=== PATIENT | female | born 2005 | race Caucasian/White ===

== ENCOUNTER 2025-04-19 11:10 | Emergency (ER) | payer OTHER, SELFPAY ==
[2025-04-19 11:12] VITALS: BP 142/92; PULSE 110; RESP 16; TEMP 36.6; O2SAT 98
--- OUTSIDE RECORDS SUMMARY | 2025-04-19 11:36 | XMS_ITS | Clinical Summary ---
Author Organization [facility] Address [address] [place] [address] Care Team Providers Care Perforating Machine Operator Name Role Phone Maxine Curtis MD Primary Care Provider [phone] Allergies Active Allergy Reactions Criticality Noted Date Comments Amoxicillin Hives Medium 07/06/2024 Medications propranoloL (INDERAL) 20 mg tablet Take 1 tablet (20 mg total) by mouth 2 (two) times a day as needed (1 hour prior to anticipated triggering event for tremmors) 30 tablet 3 5 Active Active Problems Problem Noted Date Diagnosed Date Physiological tremor 07/06/2024 Assessment & Plan (07/06/2024 2:43 PM CDT): The patient is presenting with progressively worsening tremors for the past 2 years. The patient's tremors are high frequency low amplitude. Her tremors are enhanced by caffeine intake, poor sleep, anxiety, and stress. She is endorses feels warm, increased diarrhea, and brisk reflexes, which are concerning for hyperthyroidism, which can worsen patient's tremors. Overall, the patient's tremors are likely enhanced physiological tremors given her exam and the duration of her symptoms. In order to be diagnosed with essential tremors, the patient needs to have had her symptoms for 3 years. No concern for Parkinson's disease at this time given no bradykinesia and normal tone on exam. Given her family history, it is not unreasonable to obtain brain MRI should the routine lab work is normal. If all of the work up is negative the patient would like to start symptomatic treatment with propanolol as needed given how bothersome her symptoms can be. - Obtain TSH, CBC, CMP - If normal labs, obtain bMRI WO contrast - If normal MRI start propanolol 60 mg PRN BID (if unhelpful, convert to scheduled then increase to 120 mg BID after few weeks) - Return to clinic in about 6 to 9 months Broken forearm 12/06/2014 Family History Medical History Relation Name Comments Diabetes Mother's Sister Diabetes Zenaida litus - (Added by TW Conv) Ovarian cancer Mother's Sister Carcinoma Of The Ovary - (Added by TW Conv) Thyroid disease Mother's Sister Thyroid D isorder - (Added by TW Conv) Uterine cancer Mother's Sister Uterine Ca ncer - (Added by [employer] Conv) Heart disease Paternal Grandfather Heart Disease - (Added by [employer] Conv) Stroke Paternal Grandfather Stroke Syndrome - (Added by [employer] Conv) Relation Name Status Comments Mother's Sister Paternal Grandfather Social History Tobacco Use Types Packs/Day Years Used Date Smoking Tobacco: Never Smokeless Tobacco: Never Tobacco Cessation:Counseling Given: Not Answered Comments Unknown Sex and Gender Information Value Date Recorded Sex Assigned at Not on file 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 Gender Identity Not on file Sexual Orientation Not on file Last Filed Vital Signs Vital Sign Reading Time Taken Comments Blood Pressure 120/70 07/06/2024 12:49 PM CDT Pulse 73 07/06/2024 12:49 PM CDT Temperature - - Respiratory Rate - - Oxygen Saturation 100% 11/22/2014 8:00 AM CDT Inhaled Oxygen Concentration - - Weight 49.9 kg (110 lb) 11/05/2024 10:00 AM CDT Height 157.5 cm (5' 2) 11/05/2024 10:00 AM CDT Body Mass Index 20.12 11/05/2024 10:00 AM CDT Plan of Treatment Health Maintenance Due Date Last Done Comments Cervical Cancer Screening 2003 Hepatitis C Screening 2003 Meningococcal B Vaccine (2 o f 2 - Trumenba SCDM 2-dose series) 04/24/2021 10/23/2020 Regular Well Visit/Exam 18-64 10/18/2021 DTaP/Tdap/Td Vaccine (7 - Td or Tdap) 11/18/2024 11/18/2014, 11/18/2007, 03/01/2005, Additional history exists Covid-19 Vaccine (3 - 2024-2 6 season) 2024 01/08/2021, 12/18/2020 Influenza Vaccine (#1) 2024 5, 03/25/2014, 05/04/2013, Additional history exists Depression Screening 07/06/2025 07/06/2024 Hepatitis B Screening Completed 05/03/2004 , 05/03/2004, 2003, Additional history exists Pneumococcal vaccine <65 Completed 005, 05/03/2004, 02/24/2004, Additional history exists Varicella Vaccines Completed 11/29/2008, 10/24/2004 HPV Vaccines Completed 04/23/2017, 10/21/2016 Meningococcal Vaccine Completed 11/15/2019, 015 Insurance [facility] Address: [address] [address] [facility]PPO Address: [address] [address] [place] [address] R [facility] Address: [address] [address] Care Teams Perforating Machine Operator Relationship Specialty Start Date End Date Maxine Curtis MD [address] [place] [address] PCP - General Pediatrics 04/30/24
[2025-04-19 12:00] VITALS: BP 121/78; PULSE 91; RESP 12; O2SAT 100
--- NOTE | 2025-04-19 12:02 | ED.GENADULT ---
HPI - General Adult General Chief complaint: Allergic Reaction Stated complaint: allergic reaction Time Seen by Provider: 04/19/25 11:35 History of Present Illness HPI narrative: 19-year-old female presents emergency department for evaluation for allergic reaction. Patient had her wisdom teeth pulled approximately 7 days ago. Patient was on a 5 day Medrol Dosepak along with 5 days of azithromycin. Patient completed these approximately 2 days ago. Last night patient began having increased allergic reaction involving hives. Patient did have some wheezing this morning. Patient was treated with 25 of p.o. Benadryl this morning approximately 5:00 a.m.. Upon arrival emergency department patient does have extensive hives. Patient denies any difficulty breathing or swallowing. Patient denies any swelling of her tongue her lips. Family does have an extensive allergic history. Related Data Allergies Allergy/AdvReac Type Severity Reaction Status Date / Time azithromycin Allergy Severe Hives Verified 04/19/25 12:14 amoxicillin AdvReac Mild Rash Verified 04/19/25 11:11 Review of Systems Review of Systems: All systems reviewed & are unremarkable except as noted in HPI and below Exam Narrative: APPEARANCE: Uncomfortable. HEAD: normocephalic, atraumatic. EYES: PERRLA/EOMI, conjunctivae clear. NOSE: Normal no drainage EARS:TMS clear with good light reflex. THROAT: Pharynx clear, no exudate. NECK: Supple. No adenopathy, no masses. RESPIRATORY: Airway patent, respirations nonlabored. Clear to auscultation bilaterally, no rales, rhonchi, wheezing. CARDIOVASCULAR: Regular rate and rhythm without murmurs rubs or gallops. ABDOMINAL: Soft, nontender, nondistended, normal bowel sounds MUSCULOSKELETAL: Moves all extremities. Strength/ROM intact, No edema, No calf tenderness. NEURO: Alert. Cranial nerves II through XII intact. Good gait. Good coordination SKIN: Hives Course Vital Signs Vital signs: Vital Signs Temperature 98 F 04/19/25 11:12 Pulse Rate 110 H 04/19/25 11:12 Respiratory Rate 16 04/19/25 11:12 Blood Pressure 142/92 H 04/19/25 11:12 Pulse Oximetry 98 04/19/25 11:12 Oxygen Delivery Room Air 04/19/25 11:12 Temperature 98 F 04/19/25 11:12 Pulse Rate 87 04/19/25 13:45 Respiratory Rate 14 04/19/25 13:45 Blood Pressure 120/74 04/19/25 13:45 Pulse Oximetry 100 04/19/25 13:45 Oxygen Delivery Room Air 04/19/25 11:12 [facility] MDM Narrative Medical decision making narrative: 19-year-old female presents emergency department for evaluation for allergic reaction. This is most likely reaction to her azithromycin that she completed approximate 2 days ago. Patient was treated with IV Benadryl, IV famotidine, IV Solu-Medrol and IV fluids. On re-evaluation patient does look and feel significantly improved. Patient will be provided EpiPen for home and patient will be started on a 5 day course of prednisone. Patient family were encouraged close follow-up with her primary care physician and with an population health manager. All questions concerns were addressed patient was well-appearing at time of discharge. Differential Diagnosis Differential Diagnosis: Anaphylaxis, angioedema, cellulitis, allergic reaction Discharge Plan Discharge Clinical Impression: Allergic reaction, Urticaria Patient Disposition: Home Condition: Stable Instructions: Antibiotic Form, Allergies (ED), General Allergic Reaction (ED) Additional Instructions: Prednisone as directed for the next 5 days. Benadryl as needed for recurrence of your hives. EpiPen as directed if you have any difficulty breathing or swallowing or swelling of your tongue or lips. Albuterol as needed for any wheezing. Have close follow-up with your primary care physician for outpatient allergy testing. If you have any worsening symptoms then please call or return to the emergency department. Patient Language: Venezuelan Prescriptions: New prednisone 50 mg tablet 50 mg PO DAILY 5 Days Qty: 5 0RF albuterol sulfate 90 mcg/actuation HFA aerosol inhaler 1 puff inhalation QID Qty: 6.7 0RF epinephrine [EpiPen 2-Adolfo] 0.3 mg/0.3 mL auto-injector 0.3 mg IM ONCE Qty: 2 0RF Rx Instructions: as a single dose; may repeat once Follow-up/Referrals: Kirsten,Maxine Baptiste MD [Non-Staff]
[2025-04-19] MEDS: FAMOTIDINE 20 MG/2 ML VIAL IV PUSH (12:05)
[2025-04-19 12:15] VITALS: PULSE 107; RESP 18
[2025-04-19] MEDS: ALBUTEROL SULFATE NEB 2.5 MG/3 ML INH INHALATION (12:15)
[2025-04-19] MEDS: LACTATED RINGERS 1,000 ML 999 ML IV CONT (12:24)
[2025-04-19 12:30] VITALS: PULSE 100; RESP 16
[2025-04-19 13:00] VITALS: BP 125/75; PULSE 87; RESP 13; O2SAT 100
[2025-04-19 13:45] VITALS: BP 120/74; PULSE 87; RESP 14; O2SAT 100
--- OUTSIDE RECORDS SUMMARY | 2025-04-19 13:48 | XMS_ITS | Clinical Summary ---
Author Organization [facility] Address [address] [place] [address] Care Team Providers Care Assistant Spa Director Name Role Phone Maxine Curtis MD Primary Care Provider [phone] Allergies Active Allergy Reactions Criticality Noted Date [...] Sister Uterine Ca ncer - (Added by [employer] Conv) Heart disease Paternal Grandfather Heart Disease - (Added by [employer] Conv) Stroke Paternal Grandfather Stroke Syndrome - (Added by [employer] Conv) Relation Name Status Comments Mother's Sister Paternal Grandfather Social History Tobacco Use Types Packs/Day Years Used Date Smoking Tobacco: Never Smokeless Tobacco: Never Tobacco Cessation:Counseling Given: Not Answered Comments Unknown Sex and Gender Information Value Date Recorded Sex Assigned at Not on file 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 Address: [address] [address] [facility] Address: [address] [address] [place] [address] R [facility] Address: [address] [address] Care Teams Assistant Spa Director Relationship Specialty Start Date End Date Maxine Curtis MD [address] [place] [address] PCP - General Pediatrics 04/30/24
== END 2025-04-19 14:04 | disposition home or self-care (01) ==
PROVIDERS: Emergency Provider Emergency Medicine
DX: T78.40XA Allergy, unspecified, initial encounter (principal); L50.0 Allergic urticaria; X58.XXXA Exposure to other specified factors, initial encounter
CPT/HCPCS: 94640; 96361; 96374; 96375; 99284; J1200; J2919; J7120; J7512